=== PATIENT | male | born 2005 | race Two or more races ===

== ENCOUNTER 2024-10-13 11:45 | Day surgery (SDC) | payer OTHER ==
[2024-10-10 12:11] VITALS: BP 128/83
[~2024-10-13] VITALS: Ht 177.8 cm; Wt 106.6 kg
[~2024-10-13 11:45] MED LIST: AUGMENTIN XR 11 EACH; DESMOPRESSIN; ENVARSUS XR1 MG; IRON325 MG PO; MYFORTIC180 MG; OMEGA-31000 MG PO; PROPANOLOL; VITAMIN D
[2024-10-13] MEDS ORDERED: CEFTRIAXONE SODIUM 2,000 MG VIAL ONE (12:01)
[2024-10-13] MEDS ORDERED: METRONIDAZOLE/SODIUM CHLORIDE 500 MG/100 ML PIGGYBACK IV ONE (12:01)
[2024-10-13] MEDS ORDERED: DIBUCAINE 30 GM TUBE ONE (13:31)
[2024-10-13] MEDS ORDERED: LIDOCAINE HCL 1%/EPINEPHRINE 20ML VIAL IJ ONE (13:31)
[2024-10-13] MEDS ORDERED: POVIDONE-IODINE 118 ML BOTT TOP ONE (13:31)
[2024-10-13] MEDS ORDERED: BUPIVACAINE HCL/MPF 0.5% 30ML VIAL ONE (13:31)
[2024-10-13] MEDS ORDERED: HEMOSTATIC MATRIX 1 KIT KIT TOP ONE (13:32)
[2024-10-13] MEDS ORDERED: OXYCODONE HCL5 MG PO (14:44)
== END 2024-10-13 19:45 | disposition home or self-care (01) ==
LOC: CIR.AMB 11:45
PROVIDERS: ATTEND Surgery
DX: K60.321 Anal fistula, complex, initial (principal); K62.89 Other specified diseases of anus and rectum